=== PATIENT | female | born 1955 | race Caucasian/White ===

== ENCOUNTER 2023-01-24 16:25 | Emergency (ER) | payer OTHER ==
--- NOTE | 2023-01-24 17:29 | RAD REPORT ---
EXAM DESCRIPTION: Florencia Single View01/24/2023 5:03 pm CLINICAL HISTORY: Chest pain COMPARISON: none FINDINGS: The lungs appear clear of acute infiltrate. The heart is mildly enlarged IMPRESSION: No acute abnormalities displayed
[2023-01-24 19:53] LABS: Absolute Lymphocytes (CBC) 1.8 K/uL (0.7-4.9); Hematocrit 39.5 % (36.0-45.0); Lymphocytes % 24.6 % (15.3-44.8); MCV 90.7 fL (80-100); Platelets 380 thou/uL (152-406); Protime INR 1.06; RBC Red Blood Cell Count 4.36 M/uL (3.86-4.86)
[2023-01-24] MEDS ORDERED: CIPROFLOXACIN HCL 500 MG TAB ONE (19:58)
[2023-01-24] MEDS ORDERED: NA CHLORIDE 0.9% 500 ML ONE (19:58)
[2023-01-24] MEDS ORDERED: CEFTRIAXONE 1000 MG/VIAL ONE (19:58)
[2023-01-24] MEDS ORDERED: NA CHLORIDE 0.9% 1,000 ML ONE (19:59)
[2023-01-24 20:13] LABS: Specific Gravity 1.029 (1.005-1.030); Urine Bacteria 20-50 /HPF (<20); Urine Bilirubin NEGATIVE (Negative); Urine Blood Negative (Negative); Urine Clarity Extremely Turbid (Clear); Urine Color Yellow (Yellow); Urine Crystals Unidentified Moderate /HPF (None Seen); Urine Glucose NEGATIVE (Negative); Urine Mucus 4+ /HPF (None Seen); Urine Protein 1+ (Negative); Urine RBC 21-50 /HPF (None Seen); Urine Urobilinogen Normal (Normal); Urine pH 5.5 (5.0-7.0)
[2023-01-24 20:38] LABS: ALT/SGPT 19 U/L (13-56); AST/SGOT 14 U/L (15-37); Albumin 3.7 g/dL (3.4-5.0); Alkaline Phosphatase 128 U/L (45-117); BUN Blood Urea Nitrogen 14 mg/dL (7-18); Bicarbonate 31 mEq/L (21-32); Bilirubin Direct < 0.1 mg/dL (0-0.2); Bilirubin Indirect, Calculated ND mg/dL (0.2-0.8); Bilirubin Total 0.3 mg/dL (0.2-1.0); Glomerular Filtration Rate 51 ml/min (=/>90); Glucose Level 83 mg/dL (74-106); Lipase 19 U/L (13-75); NT PRO-BNP 399 pg/mL (<125); Potassium 3.9 mEq/L (3.5-5.1); Protein, Total 7.1 g/dL (6.4-8.2); Sodium Level 140 mEq/L (136-145)
[2023-01-24 20:40] LABS: Troponin High Sensitivity 6.3 pg/mL (<58.9)
--- NOTE | 2023-01-24 20:45 | ER ---
Nurse's Notes [facility] Name: Anai Jameson Age: 67 yrs Sex: Female : 1955 Arrival Date: 01/24/2023 Time: 16:25 Bed 12 Private MD: Diagnosis: UTI/ Urinary tract infection, site not specified;Dysuria;Weakness Presentation: 01/24 16:44 Chief complaint: Patient states: Tired, cannot sleep, body aches for about a month, bp took abx she had leftover from her doctor in [place]. Pt believes she has a UTI, started having issues with urination about 2 weeks. Coronavirus screen: Vaccine status: Patient reports receiving the 2nd dose of the covid vaccine. Ebola Screen: Patient denies travel to an Ebola-affected area in the 21 days before illness onset. Initial Sepsis Screen: Does the patient meet any 2 criteria? No. Patient's initial sepsis screen is negative. Does the patient have a suspected source of infection? No. Patient's initial sepsis screen is negative. Risk Assessment: Do you want to hurt yourself or someone else? Patient reports no desire to harm self or others. Onset of symptoms was December 26, 2022. 16:44 Method Of Arrival: Ambulatory bp 16:44 Acuity: CORNELIA 3 bp Historical: - Allergies: 16:49 No Known Allergies; bp - PMHx: 16:49 Multiple sclerosis; Arthritis; Fibromyalgia; Hypothyroidism; Hypercholesterolemia; bp Gastroesophageal reflux disease; Anemia; PTSD; - Immunization history:: Client reports receiving the 2nd dose of the Covid vaccine. - Social history:: Smoking status: Patient denies any tobacco usage or history of. Screenin:15 [facility] ED Fall Risk Assessment (Adult) History of falling in the last 3 months, km8 including since admission No falls in past 3 months (0 pts) Confusion or Disorientation No (0 pts) Intoxicated or Sedated No (0 pts) Impaired Gait No (0 pts) Mobility Assist Device Used No (0 pt) Altered Elimination No (0 pt) Score/Fall Risk Level 0 - 2 = Low Risk Oriented to surroundings, Maintained a safe environment, Educated pt \T\ family on fall prevention, incl call for assistance when getting out of bed, Assessed \T\ reinforced patient's understanding of fall precautions. Abuse screen: Denies threats or abuse. Denies injuries from another. Nutritional screening: No deficits noted. Tuberculosis screening: No symptoms or risk factors identified. Assessment: 19:15 General: Appears in no apparent distress. comfortable, Behavior is calm, cooperative, km8 appropriate for age. Pain: Complains of pain in generalized Pain currently is 6 out of 10 on a pain scale. Neuro: Richter Agitation-Sedation Scale (RASS): 0 - Alert and Calm Level of Consciousness is awake, alert, obeys commands, Oriented to person, place, time, situation. Cardiovascular: Denies chest pain, shortness of breath, Capillary refill < 3 seconds Patient's skin is warm and dry. Respiratory: Airway is patent Respiratory effort is even, unlabored, Respiratory pattern is regular, symmetrical. GI: No signs and/or symptoms were reported involving the gastrointestinal system. : Reports burning with urination. EENT: No signs and/or symptoms were reported regarding the EENT system. Derm: No signs and/or symptoms reported regarding the dermatologic system. Skin is intact, Skin is dry, Skin is pink, warm \T\ dry. normal, Skin temperature is warm. Musculoskeletal: Circulation, motion, and sensation intact. Range of motion: intact in all extremities. Vital Signs: 16:44 BP 132 / 93; Pulse 85; Resp 18; Temp 98.6(O); Pulse Ox 98% ; Weight 113.4 kg; Height 5 bp ft. 6 in. ; Pain 7/10; 20:00 BP 158 / 83; Pulse 82; Resp 16; Pulse Ox 98% on R/A; km8 20:30 BP 159 / 80; Pulse 79; Resp 16; Pulse Ox 99% on R/A; km8 21:15 BP 154 / 80; Pulse 80; Resp 16; Pulse Ox 99% on R/A; km8 16:44 Body Mass Index 40.35 (113.40 kg, 167.64 cm) bp 16:44 Pain Scale: Adult bp Miguel Coma Score: 19:15 Eye Response: spontaneous(4). Motor Response: obeys commands(6). Verbal Response: km8 oriented(5). Total: 15. ED Course: 16:32 Patient arrived in ED. mg5 16:34 Sandeep Moon MD is Attending Physician. blank 16:49 Triage completed. bp 16:53 Arm band placed on right wrist. bp 17:05 XRAY Chest (1 view) In Process Unspecified. EDMS 19:15 Patient has correct armband on for positive identification. Bed in low position. Call km light in reach. Side rails up X 1. Pulse ox on. NIBP on. 19:15 Inserted saline lock: 20 gauge in right antecubital area, using aseptic technique. km8 Blood collected. 19:15 No provider procedures requiring assistance completed. km8 19:39 Strep Sent. km8 19:39 COVID-19/FLU A+B/RSV Sent. km8 19:39 Lactate w/ 2H reflex if indic. Sent. km8 19:39 Blood Culture Adult (2) Sent. km8 19:39 Urinalysis w/ reflexes Sent. km8 19:39 Lipase Sent. km8 19:39 Basic Metabolic Panel Sent. km8 19:39 CBC with Diff Sent. km8 19:39 LFT's Sent. km8 19:39 Magnesium Sent. km8 19:39 NT PRO-BNP Sent. km8 19:39 PT-INR Sent. km8 19:39 Troponin HS Sent. km8 21:16 Provided Education on: d/c teaching. km8 21:16 IV discontinued, intact, bleeding controlled, No redness/swelling at site. Pressure km8 dressing applied. Administered Medications: 20:09 Drug: Ciprofloxacin PO 500 mg PO once Route: PO; [facility] 21:15 Follow up: Response: No adverse reaction [facility] 20:10 Drug: NS 0.9% IV 500 ml IV at bolus once Route: IV; Rate: bolus; Site: right [facility] antecubital; 21:15 Follow up: IV Status: Completed infusion; IV Intake: 500ml [facility] 20:10 Drug: NS 0.9% IV 1000 ml IV at 125 ml/hr continuous Route: IV; Rate: 125 ml/hr; Site: [facility] right antecubital; 21:15 Follow up: IV Status: Order to discontinue infusion; IV Intake: 300ml [facility] 20:10 Drug: Rocephin IV 1 grams IV at per protocol once; Given slow IV push per pharmacy [facility] instructions Route: IV; Rate: per protocol; Site: right antecubital; 20:12 Follow up: IV Status: Completed infusion [facility] 21:15 Drug: Trimethoprim-Sulfamethoxazole PO (160 mg-800 mg (DS) 1 tablet PO once Route: PO; km8 21:15 Follow up: Response: Medication administered at discharge. km8 Medication: 19:15 VIS not applicable for this client. km8 Intake: 21:15 IV: 500ml; Total: 500ml. km8 21:15 IV: 300ml; Total: 800ml. km8 Outcome: 20:45 Discharge ordered by . blank 21:17 Discharged to home ambulatory, km8 21:17 Condition: good 21:17 Discharge instructions given to patient, Instructed on discharge instructions, follow up and referral plans. medication usage, Demonstrated understanding of instructions, follow-up care, medications, Prescriptions given X 2, 21:20 Patient left the ED. km8 Addendum: 01/27/2023 07:16 Addendum: Culture Results: Positive urine culture. No further action required. Bacteria e b sensitive to prescribed antibiotic. Signatures: Dispatcher [employer] EDMS Sandeep Moon MD MD cha Bryson, James, RN RN jb4 Christiano Smith RN RN Faye Willson [place] mg5 Diane Haynes, JANEE RN km8 Corrections: (The following items were deleted from the chart) 01/24 16:49 16:44 Pulse 85bpm; Resp 18bpm; Pulse Ox 98%; Temp 98.6F Oral; 113.4 kg; Height 5 ft. 6 bp in.; BMI: 40.3; Pain 7/10, Adult; bp
--- NOTE | 2023-01-24 20:45 | EDPHYS ---
Physician Documentation [facility] Name: Anai Jameson Age: 67 yrs Sex: Female : 1955 Arrival Date: 01/24/2023 Time: 16:25 Bed 12 Private MD: ED Physician Sandeep Moon HPI: 01/24 18:27 This 67 yrs old Female presents to ER via Ambulatory with complaints of Sick blank For 2 Months. 18:27 SICK X 2 MONTHS, DYSURIA, WEAK , HAS FIBROMYALGIA. Onset: The symptoms/episode blank began/occurred 60 day(s) ago. Severity of symptoms: At their worst the symptoms were mild in the emergency department the symptoms are unchanged. The patient has experienced similar episodes in the past, a few times. Historical: - Allergies: 16:49 No Known Allergies; bp - PMHx: 16:49 Multiple sclerosis; Arthritis; Fibromyalgia; Hypothyroidism; Hypercholesterolemia; bp Gastroesophageal reflux disease; Anemia; PTSD; - Immunization history:: Client reports receiving the 2nd dose of the Covid vaccine. - Social history:: Smoking status: Patient denies any tobacco usage or history of. ROS: 18:28 Constitutional: Negative for fever, chills, and weight loss, Eyes: Negative for injury, blank pain, redness, and discharge, ENT: Negative for injury, pain, and discharge, Neck: Negative for injury, pain, and swelling, Cardiovascular: Negative for chest pain, palpitations, and edema, Respiratory: Negative for shortness of breath, cough, wheezing, and pleuritic chest pain, Abdomen/GI: Negative for abdominal pain, nausea, vomiting, diarrhea, and constipation, Back: Negative for injury and pain, MS/Extremity: Negative for injury and deformity, Skin: Negative for injury, rash, and discoloration, Neuro: Negative for headache, weakness, numbness, tingling, and seizure, Psych: Negative for depression, anxiety, suicide ideation, homicidal ideation, and hallucinations, Allergy/Immunology: Negative for hives, rash, and allergies, Endocrine: Negative for neck swelling, polydipsia, polyuria, polyphagia, and marked weight changes, Hematologic/Lymphatic: Negative for swollen nodes, abnormal bleeding, and unusual bruising, 18:28 : Positive for urinary symptoms, small amounts, burning with urination, difficulty urinating, Exam: 18:28 Constitutional: This is a well developed, well nourished patient who is awake, alert, blank and in no acute distress. Head/Face: Normocephalic, atraumatic. Eyes: Pupils equal round and reactive to light, extra-ocular motions intact. Lids and lashes normal. Conjunctiva and sclera are non-icteric and not injected. Cornea within normal limits. Periorbital areas with no swelling, redness, or edema. ENT: Nares patent. No nasal discharge, no septal abnormalities noted. Tympanic membranes are normal and external auditory canals are clear. Oropharynx with no redness, swelling, or masses, exudates, or evidence of obstruction, uvula midline. Mucous membranes moist. Neck: Trachea midline, no thyromegaly or masses palpated, and no cervical lymphadenopathy. Supple, full range of motion without nuchal rigidity, or vertebral point tenderness. No Meningismus. Chest/axilla: Normal chest wall appearance and motion. Nontender with no deformity. No lesions are appreciated. Cardiovascular: Regular rate and rhythm with a normal S1 and S2. No gallops, murmurs, or rubs. Normal PMI, no JVD. No pulse deficits. Respiratory: Lungs have equal breath sounds bilaterally, clear to auscultation and percussion. No rales, rhonchi or wheezes noted. No increased work of breathing, no retractions or nasal flaring. Abdomen/GI: Soft, non-tender, with normal bowel sounds. No distension or tympany. No guarding or rebound. No evidence of tenderness throughout. Back: No spinal tenderness. No costovertebral tenderness. Full range of motion. Skin: Warm, dry with normal turgor. Normal color with no rashes, no lesions, and no evidence of cellulitis. MS/ Extremity: Pulses equal, no cyanosis. Neurovascular intact. Full, normal range of motion. Neuro: Awake and alert, GCS 15, oriented to person, place, time, and situation. Cranial nerves II-XII grossly intact. Motor strength 5/5 in all extremities. Sensory grossly intact. Cerebellar exam normal. Normal gait. Psych: Awake, alert, with orientation to person, place and time. Behavior, mood, and affect are within normal limits. 18:28 Musculoskeletal/extremity: DVT Exam: No signs of deep vein thrombosis. no pain, no swelling, no tenderness, negative Homans' sign noted on exam, no appreciated bluish discoloration, no erythema, no increased warmth, 19:40 ECG was reviewed by the Attending Physician. blank Vital Signs: 16:44 BP 132 / 93; Pulse 85; Resp 18; Temp 98.6(O); Pulse Ox 98% ; Weight 113.4 kg; Height 5 bp ft. 6 in. ; Pain 7/10; 20:00 BP 158 / 83; Pulse 82; Resp 16; Pulse Ox 98% on R/A; km8 20:30 BP 159 / 80; Pulse 79; Resp 16; Pulse Ox 99% on R/A; km8 21:15 BP 154 / 80; Pulse 80; Resp 16; Pulse Ox 99% on R/A; km8 16:44 Body Mass Index 40.35 (113.40 kg, 167.64 cm) bp 16:44 Pain Scale: Adult bp Miguel Coma Score: 19:15 Eye Response: spontaneous(4). Motor Response: obeys commands(6). Verbal Response: km8 oriented(5). Total: 15. MDM: 16:34 Patient medically screened. blank 19:40 Differential diagnosis: kidney stone, nonspecific abdominal pain, urinary tract blank infection. Differential Diagnosis sepsis, flu. Data reviewed: vital signs, nurses notes, lab test result(s), EKG, radiologic studies, plain films. Consideration of Admission/Observation Escalation of care including admission/observation considered. I considered the following discharge prescriptions or medication management in the emergency department Medications were administered in the Emergency Department. See MAR. Independent interpretation of the following test(s) in the Emergency Department EKG: See my EKG interpretation above. Test considered but Not performed: CT: no ct abd pelvis. Care significantly affected by the following chronic conditions: Hypertension, Obesity, fibromyalgia, oa, ms, gerd, hypercholesterolemia. 01/24 16:36 Order name: Basic Metabolic Panel; Complete Time: 20:44 [facility] 01/24 16:36 Order name: CBC with Diff; Complete Time: 20:12 [facility] 01/24 16:36 Order name: LFT's; Complete Time: 20:44 [facility] 01/24 16:36 Order name: Magnesium; Complete Time: 20:44 [facility] 01/24 16:36 Order name: NT PRO-BNP; Complete Time: 20:44 [facility] 01/24 16:36 Order name: PT-INR; Complete Time: 20:12 [facility] 01/24 16:36 Order name: Troponin HS; Complete Time: 20:44 [facility] 01/24 16:36 Order name: Lipase; Complete Time: 20:44 [facility] 01/24 16:36 Order name: Urinalysis w/ reflexes; Complete Time: 20:36 [facility] 01/24 16:36 Order name: Blood Culture Adult (2) [facility] 01/24 16:36 Order name: Lactate w/ 2H reflex if indic.; Complete Time: 20:36 [facility] 01/24 16:36 Order name: COVID-19/FLU A+B/RSV; Complete Time: 20:56 [facility] 01/24 16:36 Order name: Strep [facility] 01/24 20:16 Order name: Throat Culture [facility] 01/24 20:26 Order name: Urine Culture [facility] 01/24 16:36 Order name: XRAY Chest (1 view); Complete Time: 17:58 [facility] 01/24 16:36 Order name: EKG; Complete Time: 16:37 [facility] 01/24 16:36 Order name: Cardiac monitoring; Complete Time: 20:10 [facility] 01/24 16:36 Order name: EKG - Nurse/Tech; Complete Time: 19:39 [facility] 01/24 16:36 Order name: IV Saline Lock; Complete Time: 19:39 [facility] 01/24 16:36 Order name: Labs collected and sent; Complete Time: 19:39 [facility] 01/24 16:36 Order name: O2 Per Protocol; Complete Time: 20:10 [facility] 01/24 16:36 Order name: O2 Sat Monitoring; Complete Time: 20:10 [facility] EC:40 Rate is 83 beats/min. Rhythm is regular. QRS [place] is Normal. [place] interval is normal. QRS blank interval is normal. QT interval is normal. No Q waves. T waves are Normal. No ST changes noted. Clinical impression: NSR w/ Non-specific ST/T Changes and No evidence of ischemia. Interpreted by me. Reviewed by me. Administered Medications: 20:09 Drug: Ciprofloxacin PO 500 mg PO once Route: PO; jb4 21:15 Follow up: Response: No adverse reaction [facility] 20:10 Drug: NS 0.9% IV 500 ml IV at bolus once Route: IV; Rate: bolus; Site: right jb4 antecubital; 21:15 Follow up: IV Status: Completed infusion; IV Intake: 500ml [facility] 20:10 Drug: NS 0.9% IV 1000 ml IV at 125 ml/hr continuous Route: IV; Rate: 125 ml/hr; Site: [facility] right antecubital; 21:15 Follow up: IV Status: Order to discontinue infusion; IV Intake: 300ml [facility] 20:10 Drug: Rocephin IV 1 grams IV at per protocol once; Given slow IV push per pharmacy [facility] instructions Route: IV; Rate: per protocol; Site: right antecubital; 20:12 Follow up: IV Status: Completed infusion [facility] 21:15 Drug: Trimethoprim-Sulfamethoxazole PO (160 mg-800 mg (DS) 1 tablet PO once Route: PO; [facility] 21:15 Follow up: Response: Medication administered at discharge. [facility] Disposition Summary: 01/24/23 20:45 Discharge Ordered Notes: Location: Home blank Problem: new blank Symptoms: have improved blank Condition: Stable blank Diagnosis - UTI/ Urinary tract infection, site not specified blank - Dysuria blank - Weakness blank Followup: blank - With: Private Physician - When: 2 - 3 days - Reason: Recheck today's complaints, Continuance of care, Re-evaluation by your physician Discharge Instructions: - Discharge Summary Sheet blank - Dysuria blank - Urinary Tract Infection, Adult blank - Weakness blank - Urinary Tract Infection, Adult, [id number] blank - Weakness, [id number] [facility] Forms: - Medication Reconciliation Form [facility] - Thank You Letter [facility] - Antibiotic Education blank - Prescription Opioid Use blank - Patient Portal Instructions [facility] - Leadership Thank You Letter [facility] Prescriptions: - Cipro 250 mg Oral tablet - take 1 tablet ORAL route every 12 hours; 14 tablet; Refills: 0, Product [facility] Selection Permitted - Bactrim DS 800-160 mg Oral tablet - take 1 tablet ORAL route every 12 hours for 5 days; 10 tablet; Refills: 0, [facility] Product Selection Permitted Signatures: Dispatcher [employer] Sandeep Funez MD MD cha Bryson, James RN RN jb4 Christiano Smith RN RN Diane Haynes RN RN km8
[2023-01-24 20:49] LABS: SARS-COV-2 RT PCR NEGATIVE (NEGATIVE)
[2023-01-24] MEDS ORDERED: SMZ./TMP. 800/160 MG TABLET ONE (21:08)
[2023-01-24 21:29] VITALS: TEMP 98.6; O2SAT 99
[2023-01-24 21:32] VITALS: BP 154/80
--- NOTE | 2023-01-25 15:20 | EKG ---
Test Date: 2023-01-24 Test Time: 19:23:07 Client Relations Associate: RAMESH MEASUREMENT RESULTS: Intervals: Rate: 83 MT: 164 QRSD: 84 QT: 346 QTc: 406 [place]: P: 84 MT: 164 QRS: 62 T: 58 INTERPRETIVE STATEMENTS: Normal sinus rhythm Low voltage QRS Nonspecific T wave abnormality Abnormal ECG No previous ECG available for comparison Electronically Signed On 01-25-23 15:19:28 ACCOUNTANT CLERK by Emil Severino
== END 2023-01-24 21:20 | disposition home or self-care (01) ==
LOC: ER 16:25
DX: N39.0 Urinary tract infection, site not specified (principal); R53.1 Weakness; G35 Multiple sclerosis; M79.7 Fibromyalgia; Z11.52 Encounter for screening for COVID-19
CPT/HCPCS: 96361; 93005; 87040 ×2; 87070; 87088; 85025; 81001; 87086; 80048; 36415; 83735; 85610; 80076; 87081; 83605; 87077; 87186; 84484; 83690; 83880; 0241U; 71045; 96374; 99284; J7040; J7030; J0696